=== PATIENT | male | born 1995 | race Caucasian/White ===

== ENCOUNTER 2022-09-22 15:50 | Emergency (ER) | payer OTHER, SELFPAY ==
[2022-09-22 16:23] VITALS: BP 126/64; PULSE 40; RESP 16; TEMP 36.1; O2SAT 100
--- NOTE | 2022-09-22 16:46 | ED.SKABFB ---
HPI - Skin/Abscess/Foreign Bdy General Chief complaint: Skin/Abscess/Foreign Body Stated complaint: rash Time Seen by Provider: 09/22/22 16:46 Source: patient Mode of arrival: ambulatory Limitations: no limitations History of Present Illness HPI narrative: 27-year-old male presents with complaint of poison mildred to bilateral arms, trunk, left hip for approximately 3 days. Reports started to arms and then spread to trunk and left hip. Patient applying [id number] hydrocortisone cream and calamine lotion. Complaint of itching. States his girlfriend also got poison mildred but hers is already gone and his is getting worse. All systems reviewed and negative except as noted above. Related Data Allergies Allergy/AdvReac Type Severity Reaction Status Date / Time No Known Allergies Allergy Verified 09/22/22 16:20 Review of Systems Review of Systems: CONSTITUTIONAL: Denies fever, chills, or sweats. EYES: Denies visual changes, redness, or discharge. ENT: Denies rhinorrhea, congestion, sore throat, or otalgia. CARDIOVASCULAR: Denies chest pain, palpitations, or edema. RESPIRATORY: Denies cough or dyspnea. GASTROINTESTINAL: Denies abdominal pain, nausea, vomiting, or diarrhea. GENITOURINARY: Denies dysuria or hematuria. SKIN: Reports rash and itching. MUSCULOSKELETAL: Denies back pain, joint pain, or myalgia. NEUROLOGIC: Denies headache, numbness, or weakness. PSYCHIATRIC: Denies anxiety or depression. All other systems reviewed are negative, except as documented in HPI. PMFSH Comments At time of signature, agree with nursing past medical, surgical, social and family history. There is no relevant family history pertinent to the presenting complaint. Exam Narrative: GENERAL: This is a well-nourished, well-developed patient, in no apparent distress. HEAD: normocephalic, atraumatic. EYES: PERRL. Sclera clear/white. Vision is grossly intact. EARS: External ears normal NOSE: External nose normal NECK: Neck supple, non-tender without lymphadenopathy, masses or thyromegaly. CARDIOVASCULAR: Regular rate and rhythm without murmurs, gallops, or rubs. RESPIRATORY: Clear to auscultation. Breath sounds equal bilaterally. No wheezes, rales, or rhonchi. SKIN: warm, Dry, intact with good texture and turgor. erythematous vesicular rash to bilateral arms, trunk and left hip. Some vesicles are scabbed, some are in a linear ear pattern. No signs of infection. some weeping clear fluid from vesicles. NEURO: awake, alert, and oriented to person, place and time. There were no obvious focal neurologic abnormalities. EXTREMITIES: No joint tenderness, effusion, or edema noted. Course Course Level of Care: Express Care Visit Vital Signs Vital signs: Vital Signs Temperature 36.1 C L 09/22/22 16:23 Pulse Rate 40 L 09/22/22 16:23 Respiratory Rate 16 09/22/22 16:23 Blood Pressure 126/64 09/22/22 16:23 Pulse Oximetry 100 09/22/22 16:23 Oxygen Delivery Room Air 09/22/22 16:23 Temperature 36.1 C L 09/22/22 16:23 Pulse Rate 40 L 09/22/22 16:23 Respiratory Rate 16 09/22/22 16:23 Blood Pressure 126/64 09/22/22 16:23 Pulse Oximetry 100 09/22/22 16:23 Oxygen Delivery Room Air 09/22/22 16:23 Reviewed MDM - Skin/Abscess/Foreign Bdy MDM Narrative Medical decision making narrative: Patient is aware of diagnosis, understands and agrees to treatment plan. Anticipatory guidance given. Patient agrees to follow-up as directed and is aware of reasons to seek care at the emergency department. Portions of this record may have been created with voice recognition software prescribing prednisone, triamcinolone and hydroxyzine today for poison mildred. Discharge Plan Discharge Clinical Impression: Allergic dermatitis due to poison mildred Patient Disposition: Home, Self-Care Condition: Stable Instructions: Poison Mildred (ED) Additional Instructions: take medications as prescribed. Do
== END 2022-09-22 16:56 | disposition home or self-care (01) ==
PROVIDERS: Emergency Provider Nurse Practitioner Family
DX: L23.7 Allergic contact dermatitis due to plants, except food (principal)
CPT/HCPCS: 99213; G0463